=== PATIENT | male | born 1950 | race Caucasian/White ===

== ENCOUNTER 2018-09-25 12:31 | Emergency (ER) | payer OTHER ==
[2018-09-25] MEDS ORDERED: NS 1,000 ML IV ONE (12:40)
--- NOTE | 2018-09-25 12:42 | EDPHY ---
HPI/HX/ROS/PE/MDM Narrative: CHIEF COMPLAINT: Dizziness HPI: The patient is a 68-year-old male with a history of coronary artery disease status post 1 stent approximately 1 year ago. The patient was brought to the emergency department by ambulance from [facility]. The patient tells me that he was able do 6-7 runs this morning and did not fall. While he was standing the lift line he became acutely lightheaded with some degree of dizziness and felt like he might pass out. He did not experience chest pain. He was evaluated by the First Aid staff who then called EMS. EMS noted no focal deficits but stated the patient was confused as to the year and had trouble forming new memories. Patient denies headache or visual changes. He denies numbness or weakness. He states nothing like this has happened previously. BGL on scene was normal. REVIEW OF SYSTEMS: Aside from elements discussed in the HPI, a comprehensive 10-point review of systems was reviewed and is negative. PMH: Includes coronary artery disease status post stent. No history of stroke or brain tumor. SOCIAL HISTORY: Works as a financial counselor. Uses marijuana occasionally, none today. PHYSICAL EXAM: General:Patient is alert, in no acute distress. ENT:Eyes are normal to inspection. ENT inspection normal. Neck: Normal inspection. Full range of motion. Respiratory:No respiratory distress. Breath sounds normal bilaterally. Cardiovascular: Regular rate and rhythm. Strong peripheral pulses. Normal cap refill. Abdomen:The abdomen is nontender to palpation. There are no peritoneal signs. There are normal bowel sounds. Back: Normal to inspection. No tenderness to palpation. Skin: Normal color. No rash. Warm and dry. Extremities: Normal appearance. Full range of motion. Neuro: Normal motor function. Normal sensory function. Patient with fluent speech. Patient is confused as to here despite being asked this question by EMS. He currently thinks that it is 2012. ED Course: Stroke alert initiated immediately after exam. While the patient has subtle findings on exam, none of which are motor, he clearly presents with acute onset of significant mental status change - clearly a financial counselor should know what year it is. 1:00 p.m.: Dr. Griggs from radiology called me to inform me that the noncontrast head CT is negative for acute findings. 1:10pm: Spoke with [facility]rolog[facility] - he will evaluate patient via telemedicine. 1:20pm: Dr. Segovia from [facility] feels exam not consistent with need for tPA. Recommends awaiting CTA results. 1:27pm: Results of CTA called to me as positive for acute clot by Dr. Mederos. I immediately called back Dr. Segovia who now recommends immediate tPA administration and transfer via helicopter to [facility] for further care and IR consideration. I had an extensive discussion with the patient and his daughters regarding our findings as well as the recommendation for tPA. I specifically discussed risks of intracranial hemorrhage with patient and family. They are in agreement to proceed with tPA administration and emergent transfer. I personally spent a total of 55 minutes of critical care time in obtaining history, performing a physical exam, bedside monitoring of interventions, collecting and interpreting tests and discussion with consultants but not including time spent performing procedures. This time was exclusive of any involvement by Physician Safety And Health Manager. Organ system(s) at risk include: Neurologic - Data Points Imaging Results: Imaging Impressions Head CT 09/25/18 12:42 Impression: No acute intracranial hemorrhage. With clinical concern for acute ischemia, MRI is recommended for further evaluation. Castillo Camarena was notified of these findings by telephone at 12:58 PM on 2018 Head CTA 09/25/18 12:42 Impression: 1. 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 2. 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 3. Additional findings as above. MRI would be useful for further evaluation. Stenoses are calculated using [place] Symptomatic Carotid Endarterectomy Trial (NASCET) criteria. Findings discussed with Dr. Tim Camarena on September 25, 2018 at 1327 hours. Neck CTA 09/25/18 12:42 Impression: 1. 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 2. 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 3. Additional findings as above. MRI would be useful for further evaluation. Stenoses are calculated using [place] Symptomatic Carotid Endarterectomy Trial (NASCET) criteria. Findings discussed with Dr. Tim Camarena on September 25, 2018 at 1327 hours. Laboratory Results: Laboratory Results 09/25/18 12:40 09/25/18 09/25/18 09/25/18 12:45 12:44 12:40 WBC 9.54 10^3/uL H 10^3/uL (3.80-9.50) RBC 4.60 10^6/uL 10^6/uL (4.40-6.38) Hgb 14.1 g/dL g/dL (13.7-17.5) POC Hgb 14.6 gm/dL gm/dL (13.7-17.5) Hct 40.8 % % (40.0-51.0) POC Hct 43 % % (40-51) MCV 88.7 fL fL (81.5-99.8) MCH 30.7 pg pg (27.9-34.1) MCHC 34.6 g/dL g/dL (32.4-36.7) RDW 13.1 % % (11.5-15.2) Plt Count 247 10^3/uL 10^3/uL (150-400) MPV 8.7 fL fL (8.7-11.7) Neut % (Auto) 77.1 % H % (39.3-74.2) Lymph % (Auto) 14.9 % L % (15.0-45.0) [place] % (Auto) 6.9 % % (4.5-13.0) Eos % (Auto) 0.4 % L % (0.6-7.6) Baso % (Auto) 0.5 % % (0.3-1.7) Nucleat RBC Rel Count 0.0 % % (0.0-0.2) Absolute Neuts (auto) 7.35 10^3/uL H 10^3/uL (1.70-6.50) Absolute Lymphs (auto) 1.42 10^3/uL 10^3/uL (1.00-3.00) Absolute Monos (auto) 0.66 10^3/uL 10^3/uL (0.30-0.80) Absolute Eos (auto) 0.04 10^3/uL 10^3/uL (0.03-0.40) Absolute Basos (auto) 0.05 10^3/uL 10^3/uL (0.02-0.10) Absolute Nucleated RBC 0.00 10^3/uL 10^3/uL (0-0.01) Immature Gran % 0.2 % % (0.0-1.1) Immature Gran # 0.02 10^3/uL 10^3/uL (0.00-0.10) POC Sodium 138 mEq/L mEq/L (135-145) POC Potassium 4.1 mEq/L mEq/L (3.3-5.0) POC Chloride 103 mEq/L mEq/L (97-110) POC Total CO2 20 mEq/L L mEq/L (22-31) POC BUN 16 mg/dL mg/dL (7-23) POC Creatinine 1.0 mg/dL mg/dL (0.7-1.3) POC Glucose 165 mg/dL H mg/dL (70-100) POC Troponin I 0.00 ng/mL ng/mL (0.00-0.08) Medications Given: Discontinued Medications Alteplase, Recombinant (Activase) 6.45208 mg 0.09 mg/kg (6.52793 mg) IV ONCE ONE PRN Reason: Protocol Stop: 09/25/18 13:45 Last Admin: 09/25/18 13:58 Dose: 6.36948 mg Alteplase, Recombinant (Activase) 58.14930 mg 0.81 mg/kg (58.85685 mg) IV ONCE ONE PRN Reason: Protocol Stop: 09/25/18 13:45 Last Admin: 09/25/18 13:57 Dose: 58.09292 mg Sodium Chloride (Ns) 1,000 mls @ 0 mls/hr IV EDNOW ONE; Wide Open PRN Reason: Protocol Stop: 09/25/18 12:41 Last Admin: 09/25/18 13:11 Dose: 1,000 mls Sodium Chloride (Ns) 50 mls @ 0 mls/hr IV EDNOW ONE PRN Reason: Per Protocol Stop: 09/25/18 13:45 Last Admin: 09/25/18 13:57 Dose: 50 mls Point of Care Test Results: Chemistry 09/25/18 09/25/18 12:45 12:44 POC Sodium 138 mEq/L mEq/L (135-145) POC Potassium 4.1 mEq/L mEq/L (3.3-5.0) POC Chloride 103 mEq/L mEq/L (97-110) POC Total CO2 20 mEq/L L mEq/L (22-31) POC BUN 16 mg/dL mg/dL (7-23) POC Creatinine 1.0 mg/dL mg/dL (0.7-1.3) POC Glucose 165 mg/dL H mg/dL (70-100) POC Troponin I 0.00 ng/mL ng/mL (0.00-0.08) ISTAT H&H 09/25/18 12:45 POC Hgb 14.6 gm/dL gm/dL (13.7-17.5) POC Hct 43 % % (40-51) General Time Seen by Provider: 09/25/18 12:37 Initial Vital Signs: Initial Vital Signs Temperature (C) 37.0 C 09/25/18 12:41 Heart Rate 74 09/25/18 12:41 Respiratory Rate 16 09/25/18 12:41 Blood Pressure 142/90 H 09/25/18 12:41 O2 Sat (%) 100 09/25/18 12:41 O2 Delivery Mode Room Air Allergies/Adverse Reactions: No Known Allergies Allergy (Unverified 09/25/18 12:40) Home Medications: Medication Instructions Recorded Aspirin 09/25/18 SIMVASTATIN 09/25/18 Departure - Departure Disposition: Acute Care Hospital Not [facility] Clinical Impression: Acute ischemic stroke Condition: Serious Referrals: Patient,NotPresent [Unknown] - As per Instructions
[2018-09-25] MEDS ORDERED: IOPAMIDOL (ISOVUE-370) 150 ML BTL IV ONE (12:44)
[2018-09-25 12:58] LABS: PLATELET COUNT 247 10^3/uL (150-400)
[2018-09-25] MEDS ORDERED: ALTEPLASE 100 MG/100 ML VIAL IV ONE ×3 (13:38→13:45)
[2018-09-25] MEDS ORDERED: ALTEPLASE 1 MG/ML SYR IV ONE (13:44)
[2018-09-25] MEDS ORDERED: NS 50 ML IV ONE (13:44)
[2018-09-25 14:25] VITALS: BP 143/79
--- NOTE | 2018-09-28 22:48 | CPEKG ---
Test Reason : OPEN Blood Pressure : / mmHG Vent. Rate : 079 BPM Atrial Rate : 080 BPM P-R Int : 269 ms QRS Dur : 106 ms QT Int : 407 ms P-R-T Axes : 069 002 039 degrees QTc Int : 467 ms Sinus rhythm Ventricular premature complex Prolonged ME interval Probable anteroseptal infarct, old Confirmed by Tim Camarena ([id number] on 09/28/2018 10:47:58 PM Referred By: Tim Camarena Confirmed By:Tim Camarena
== END 2018-09-25 14:15 | disposition short-term general hospital (02) ==
DX: I63.432 Cerebral infarction due to embolism of left posterior cerebral artery (principal); Z95.2 Presence of prosthetic heart valve; I25.10 Atherosclerotic heart disease of native coronary artery without angina pectoris; E86.9 Volume depletion, unspecified
CPT/HCPCS: 70450; 70496; 70498; 93005; 96361; 96365; 96375; 99291; J2997; Q9967; 82435-PO; 82565-PO; 82947-PO; 84132-PO; 84295-PO; 84484-ER; 84520-PO; 85014-ER